=== PATIENT | female | born 1965 ===

== ENCOUNTER 2018-07-03 08:24 | Day surgery (SDC) | payer OTHER ==
[2018-07-03] MEDS ORDERED: BOTULINUM TOXIN TYPE A 100 UNIT VIAL MISC ONE (08:45)
[2018-07-03] MEDS ORDERED: LR 1,000 ML IV ONE (08:51)
[2018-07-03] MEDS ORDERED: ONDANSETRON 4 MG/2 ML VIAL IVP PRN ×2 (09:39→10:48)
[2018-07-03] MEDS ORDERED: fentaNYL 100 MCG/2 ML INJ IVP PRN ×2 (09:39→10:48)
[2018-07-03] MEDS ORDERED: NALOXONE HCL 0.4 MG/ML INJ IVP PRN ×2 (09:39→10:48)
[2018-07-03] MEDS ORDERED: oxyCODONE IR 5 MG TAB PO PRN ×2 (09:39→10:48)
[2018-07-03] MEDS ORDERED: ACETAMINOPHEN 500 MG TAB PO PRN ×2 (09:39→10:48)
[2018-07-03] MEDS ORDERED: HYDROCODONE/APAP 5/325 TAB PO PRN ×2 (09:39→10:48)
[2018-07-03] MEDS ORDERED: DEXAMETHASONE 4 MG/ML VIAL IVP PRN ×2 (09:39→10:48)
--- NOTE | 2018-07-03 09:39 | PDANEPAE ---
ANE History of Present Illness EGD with botox injection ANE Past Medical History - Cardiovascular History Hx Hypertension: No Hx Arrhythmias: No Hx Chest Pain: No Hx Coronary Artery / Peripheral Vascular Disease: No Hx CHF / Valvular Disease: No Hx Palpitations: No - Pulmonary History Hx COPD: No Hx Asthma/Reactive Airway Disease: No Hx Recent Upper Respiratory Infection: No Hx Oxygen in Use at Home: No Hx Sleep Apnea: No Sleep Apnea Screening Result - Last Documented: Negative - Neurologic History Hx Cerebrovascular Accident: No Hx Seizures: No Hx Dementia: No - Endocrine History Hx Diabetes: No - Renal History Hx Renal Disorders: No - Liver History Hx Hepatic Disorders: No Hepatic History Comment: HOMER - Neurological & Psychiatric Hx Hx Neurological and Psychiatric Disorders: No - Cancer History Hx Cancer: No - GI History Hx Gastrointestinal Disorders: No Gastrointestinal History Comment: ESOPHAGEAL - ACHALASIA. CHRONIC DIARRHEA. IBS - Other Health History Other Health History: NEG - Chronic Pain History Chronic Pain: No - Surgical History Prior Surgeries: EYE SURGERY. EYE PLASTY. CHOLECYSTECTOMY. UMB HERNIA. MEJIA PROCEDURE. C SECTION ANE Review of Systems Review of systems is: negative Review of Systems: - Exercise capacity METS (RN): 5 METS ANE Patient History - Allergies Allergies/Adverse Reactions: No Known Allergies Allergy (Unverified 06/26/18 16:28) - Home Medications Home medications: home medication list seen and reviewed Home Medications: Advil 06/26/18 [Last Taken 1 Week Ago ~06/26/18] Alprazolam 06/26/18 [Last Taken 06/26/18] Multivitamin 06/26/18 [Last Taken 07/01/18] Norethind-Eth Estrad 0.5-2.5 06/26/18 [Last Taken 07/02/18] Welchol 06/26/18 [Last Taken 07/02/18] Zolpidem Tartrate 06/26/18 [Last Taken 07/02/18] - NPO status NPO Status: no food or drink >8 hours NPO Since - Liquids (Date): 07/01/18 NPO Since - Liquids (Time): 18:00 NPO Since - Solids (Date): 07/02/18 NPO Since - Solids (Time): 20:00 - Anes Hx Anes Hx: post operative nausea - Smoking Hx Smoking Status: Never smoked - Family Anes Hx Family Anes Hx: none ANE Labs/Vital Signs - Vital Signs Vital Signs: reviewed preoperatively; see RN documention for details Blood Pressure: 130/87 Heart Rate: 67 Respiratory Rate: 16 O2 Sat (%): 97 Height: 177.8 cm Weight: 62.596 kg ANE Physical Exam - Airway Neck exam: FROM Mallampati Score: Class 1 Mouth exam: normal dental/mouth exam - Pulmonary Pulmonary: no respiratory distress - Cardiovascular Cardiovascular: regular rate and rhythym - ASA Status ASA Status: II ANE Anesthesia Plan Total IV Anesthesia: Yes
--- NOTE | 2018-07-03 10:09 | PDGENHP ---
History & Physical Chief Complaint: Achalasia History of Present Illness: 53 yo with achalsia. Previous Heller myotomy. Recurrent dysphagia Pertinent Past, Social, Family History: PMH: Achalasia. GERD. PSH: Heller myotomy, cholecystectomy, hernia repair. SH: no tob, no ETOH Relevant Physical Exam: NAD. CTA B/L. RRR without m/r/g. GI soft. NABS. NT/ND Cardiorespiratory Assessment: ASA II. EGD with botox. MAC with IV sedation
[2018-07-03] MEDS ORDERED: PROPOFOL/EMULSION 500 MG/50 ML BOTTLE IV ONE (10:37)
[2018-07-03] MEDS ORDERED: LIDOCAINE 2% 100 MG/5 ML SYR ONE (10:37)
--- NOTE | 2018-07-03 10:47 | POSTANESTH ---
Post Anesthetic Evaluation Cardiovascular Status: Normal, Stable, Similar to Pre-Op Cond Respiratory Status: Normal, Stable, Similar to Pre-op Cond. Level of Consciousness/Mental Status: Can Participate in Eval, Mildly Sleepy, Arousable Pain Control: Adequate, Prn Tx Ordered Nausea/Vomiting Control: Adequate, Prn Tx Ordered Complications Possibly Related to Anesthesia: None Noted
[2018-07-03] MEDS ORDERED: PROMETHAZINE HCL 25 MG/ML INJ IVP PRN (10:48)
--- NOTE | 2018-07-03 10:54 | GIREPORT ---
[facility] Surgical Services - Endoscopy Department Patient Name: Roxana Hartman Procedure Date: 07/03/2018 10:18 AM Patient Type: Outpatient Attending MD/ ER Physician: Rajan Mckeon MD Procedure: Upper GI endoscopy Indications: Dysphagia, Achalasia, For botulinum toxin injection of achalasia Providers: Rajan Mckeon MD Medicines: Propofol per Anesthesia Complications: No immediate complications. Description of Procedure: After obtaining informed consent, the endoscope was passed under direct vision. Throughout the procedure, the patient's blood pressure, pulse, and oxygen saturations were monitored continuously. The Endoscope was intro duced through the mouth, and advanced to the second part of duodenum. The [facility] er GI endoscopy was accomplished without difficulty. The patient tolerated th e procedure well. Findings: The esophagus was normal. Motility was present but somewhat uncoordinat ed. The esophagus is non-dilated and was without stasis of food or liquid. Area was successfully injected with 100 units botulinum toxin (25 units into each of 4 quadrants at the LES). Evidence of a prior Heller myotomy and Toupet fundoplication was found in the cardia. This was characterized by healthy appearing mucosa. The fundoplication appeared normal anatomically and was not restrictive. The examined duodenum was normal. Estimated Blood Loss: Estimated blood loss: none. Post Op Diagnosis: - Normal esophagus. Injected with 100 units botulinum toxin (25 units i nto each of 4 quadrants) successfully. - A Toupet fundoplication was found, characterized by healthy appearing mucosa. The wrap was not overtly restrictive or tight. - Normal examined duodenum. - No specimens collected. Recommendation: - Mechanical soft diet for 3 days. - Continue present medications. - Return to GI office as previously scheduled. - Thank you for allowing me to be involved in the care of your patient. Attending Participation: I personally performed the entire procedure without the assistance of a fellow, resident or surg ical daycare assistant. Rajan Mckeon MD Rajan Mckeon MD 07/03/2018 10:54:18 AM This report has been signed electronicallyDavid MD Mike Number of Addenda: 0 Note Initiated On: 07/03/2018 10:18 AM [email or web address]
[2018-07-03 12:16] VITALS: BP 142/87
== END 2018-07-03 12:10 | disposition home or self-care (01) ==
LOC: FSGY 08:24
PROVIDERS: ATTEND Internal Medicine Gastroenterology
DX: K22.0 Achalasia of cardia (principal)
CPT/HCPCS: J0585; J2001; J2704